=== PATIENT | male | born 1940 | race Caucasian/White ===

== ENCOUNTER → 2019-03-04 | Day surgery (SDC) | payer OTHER ==
--- OUTSIDE RECORDS SUMMARY | 2019-03-04 09:27 | XMS REPORT ---
:1940 [facility] Address [address] [place] [address] Dr. Pat [address] [place] [id number] Care Team Providers Name Role Phone Unavailable Unavailable Unavailable Problems This patient has no known problems. Allergies, Adverse Reactions, Alerts This patient has no known allergies or adverse reactions. Medications This patient has no known medications.
--- OUTSIDE RECORDS SUMMARY | 2019-03-04 09:27 | XMS REPORT | Continuity of Care Document ---
:1940 Author Organization Interface Problems Problem Status Onset Classification Date Comments Source Date Reported 442.[address] LOWER Active [facility] ANEURYSM Medications Medication Details Route Status Patient Ordering Order Source Instructions Provider Date pneumococcal 0.5 ml, IM No Longer SYSTEM 23-valent Route: IM, Active [address] [place] [address] vaccine Drug Form: City INJ, Start date: 11/01/09 9:00:00 Allergies, Adverse Reactions, Alerts Substance Category Reaction Severity Reaction Status Date Comments Source type Reported traMADOL drug Allergy Active allergy [facility] Immunizations Immunization Date Given Site Status Last Updated Comments Source pneumococcal 11/01/2009 completed Zora [facility] [place] 23-valent [facility] Results Order Results Value Reference Date Interpretation Comments Source Name Range Vital Signs Vital Sign Value Date Comments Source Weight 81.818 09/21/2012 [facility] Height 182.88 cm 09/21/2012 [facility] Encounters Location Location Encounter Encounter Reason Attending ADM DC Status Source Details Type Number For Provider Date Date Visit Outpatient [id number] 442.3 CATRACHITA 09/21 Active [facility] Procedures Procedure Code Date Perfomer Comments Source
--- OUTSIDE RECORDS SUMMARY | 2019-03-04 09:27 | XMS REPORT | Clinical Summary ---
:1940 Author Organization [facility] Address [address] [place] [address] Care Team Providers Name Role Phone Asked, No Pcp Primary Care Provider Unavailable Allergies Active Allergy Reactions Severity Noted Date Comments Tramadol Other (See Comments) 02/25/2017 nausea Medications Medication Sig Dispensed Refills Start Date End Date Status warfarin (COUMADIN) 2 MG Take 2 mg by 0 Active tablet mouth daily. methocarbamol (ROBAXIN) 500 Take 500 mg 0 Active MG tablet by mouth 4 (four) times a day. luyvfpcx-ivu-QZ-lycopen-lut Take by 0 Active ein (CENTRUM SILVER) mouth. 0.4-300-250 mg-mcg-mcg tablet traZODone (DESYREL) 100 MG Take 100 mg 0 Active tablet by mouth nightly. simvastatin (ZOCOR) 40 MG Take 40 mg by 0 Active tablet mouth nightly. lisinopril Take 20 mg by 0 Active (PRINIVIL,ZESTRIL) 20 mg mouth daily. tablet hydroCHLOROthiazide Take 25 mg by 0 Active (HYDRODIURIL) 25 MG tablet mouth daily. levothyroxine (SYNTHROID, Take 112 mcg 0 Active LEVOXYL) 112 mcg tablet by mouth every morning. aspirin (ECOTRIN) 81 MG Take 81 mg by 0 Active enteric coated tablet mouth daily. atenolol (TENORMIN) 50 MG Take 50 mg by 0 Active tablet mouth daily. Active Problems Not on file Social History Tobacco Use Types Packs/Day Years Used Date Never Smoker Sex Assigned at Date Recorded Not on file Job Start Date Occupation Industry Not on file Not on file Not on file Travel History Travel Start Travel End No recent travel history available. Last Filed Vital Signs Not on file Plan of Treatment Health Maintenance Due Date Last Done Comments SHINGLES VACCINES (#1) 1988 65+ PNEUMOCOCCAL VACCINE (1 of 2 - PCV13) 2003 PNEUMOCOCCAL POLYSACCHARIDE VACCINE AGE 65 AND OVER 2003 INFLUENZA VACCINE 06/02/2019 Results Not on fileafter 03/03/2018 Insurance Payer Benefit Plan / Group Subscriber ID Type Phone Address AETNA A[facility] xxxxxxxxx Indemnity MEDICARE MEDICARE PART A AND B xxxxxxxxxx Medicare [place], [place] FOR LIFE xxxxxxxxxxx Advance Directives Patient has advance care planning documents on file. For more information, please contact:Harris Esteban[address] [place] [address]
--- OUTSIDE RECORDS SUMMARY | 2019-03-04 09:27 | XMS REPORT | CCD ---
:[address] [facility] Care Team Providers Name Role Phone Antonino Ngo III Referring Provider Allergies, Adverse Reactions, Alerts Substance Reaction Status traMADOL Active Medications Medication Instructions Start Date End Date Status pneumococcal 23-valent 0.5 ml, Route: IM, Drug 11/01/2009 11/01/2009 Completed vaccine Form: INJ, Start date: 11/01/09 9:00:00 Immunizations Vaccine Date Status pneumococcal 23-valent vaccine 11/01/2009 Auth (Verified) Vital Signs Most recent to oldest [Reference Range]: 1 Height 182.88 cm (09/21/2012 10:11:00) Weight 81.818 kg (09/21/2012 10:11:00)
--- NOTE | 2019-03-04 11:41 | RAD REPORT ---
EXAM DESCRIPTION: US - Guided FNA Non Breast - 03/04/2019 10:25 am CLINICAL HISTORY: D37.030 right parotid mass COMPARISON: January 2019 cat scan TECHNIQUE: Risks, benefits and alternatives of procedure explained to the patient and informed conse nt obtained. Skin and subcutaneous tissues anesthetized with lidocaine. Under sonographic guidance, the right parotid mass was localized. 18 gauge needle was placed into the fluid within the mass and several cc of reddish brown fluid removed and given to pathology. A 17 gauge needle was then placed into the solid component of the mass. Through this an 18 gauge need le was placed and 3 core specimens obtained varying in size from 1-1.5 centimeters. Specimens given to pathology. Patient experienced no immediate complication IMPRESSION: Core biopsies of the solid component of a right parotid mass.
== END ==
LOC: FNA 09:25
PROVIDERS: ATTEND Otolaryngology
DX: D37.030 Neoplasm of uncertain behavior of the parotid salivary glands (principal)
CPT/HCPCS: 88108; 88305

== ENCOUNTER 2019-04-01 09:45 | Day surgery (SDC) | payer OTHER ==
--- NOTE | 2019-03-31 11:30 | EKG ---
Test Date: 2019-03-30 Test Time: 14:34:17 Topographical Field Assistant: MONSERRAT MEASUREMENT RESULTS: Intervals: Rate: 67 NE: QRSD: 108 QT: 414 QTc: 437 Magna: P: NE: QRS: 61 T: 82 INTERPRETIVE STATEMENTS: Atrial fibrillation with ventricular paced complexes Septal infarct, age undetermined Abnormal ECG Compared to ECG 05/29/2017 07:30:38 no significant change from previous ECG Electronically Signed On 03-31-19 07:36:49 CDT by Mendel Connelly
[2019-04-01] MEDS ORDERED: Ringers Lactate 1,000 ML IV ONE (10:32)
--- OUTSIDE RECORDS SUMMARY | 2019-04-01 11:40 | XMS REPORT | Continuity of Care Document ---
:1940 Author Organization Interface Problems Problem Status Onset Classification Date Comments Source Date Reported 442.[address] LOWER Active [facility] ANEURYSM Medications Medication Details Route Status Patient Ordering Order Source Instructions Provider Date pneumococcal 0.5 ml, IM No Longer SYSTEM 23-valent Route: IM, Active [address] [place] [address] vaccine Drug Form: City INJ, Start date: 11/01/09 9:00:00 Allergies, Adverse Reactions, Alerts Substance Category Reaction Severity Reaction Status Date Comments Source type Reported traMADOL drug Allergy Active allergy [facility] Immunizations Immunization Date Given Site Status Last Updated Comments Source pneumococcal 11/01/[address] [facility] 23-valent [facility] Results Order Results Value Reference Date Interpretation Comments Source Name Range Vital Signs Vital Sign Value Date Comments Source Weight 81.818 09/21/2012 [facility] Height 182.88 cm 09/21/2012 [facility] Encounters Location Location Encounter Encounter Reason Attending ADM DC Status Source Details Type Number For Provider Date Date Visit Outpatient [id number] 442.3 CATRACHITA 09/21 Active [facility] Procedures Procedure Code Date Perfomer Comments Source
--- OUTSIDE RECORDS SUMMARY | 2019-04-01 11:40 | XMS REPORT | CCD ---
:1940 Author Organization [facility] Care Team Providers Name Role Phone Antonino [...]
--- OUTSIDE RECORDS SUMMARY | 2019-04-01 11:40 | XMS REPORT | Clinical Summary ---
:1940 Author Organization [facility] Address [address] [place] [address] Care Team Providers Name Role Phone Asked, [...] by mouth 4 (four) times a day. uzgtdzft-hzu-JH-lycopen-lut Take by 0 Active ein (CENTRUM SILVER) [...] INFLUENZA VACCINE 06/02/2019 Results Not on fileafter 03/31/2018 Insurance Payer Benefit Plan / Subscriber ID Effective Dates Phone Address Type Group AETNA AETNA [facility] xxxxxxxxx 2000-[facility] Indemnity INDEMNITY t MEDICARE MEDICARE PART A AND xxxxxxxxxx 2003-[place], [place] Medicare B t FOR LIFE xxxxxxxxxxx 2016-Prese nt Advance Directives Patient has advance care planning documents on file. For more information, please contact:Harris Esteban[address] [place] [address]
--- OUTSIDE RECORDS SUMMARY | 2019-04-01 11:41 | XMS REPORT ---
:1940 [facility] Address [address] [place] [address] Dr. Mario. [address] [place] [address] Care Team Providers Name Role Phone Unavailable Unavailable Unavailable Problems This patient has no known problems. Allergies, Adverse Reactions, Alerts This patient has no known allergies or adverse reactions. Medications This patient has no known medications.
[2019-04-01] MEDS ORDERED: PROPOFOL 200 MG/20 ML VIAL IV ONE (12:17)
[2019-04-01] MEDS ORDERED: FENTANYL CITR 100 MCG/2 ML ONE ×2 (12:17→14:41)
[2019-04-01] MEDS ORDERED: MIDAZOLAM HCL 2 MG/2 ML INJ ONE (12:17)
[2019-04-01] MEDS ORDERED: ROCURONIUM 50 MG/5 ML VIAL IV ONE (12:17)
[2019-04-01] MEDS ORDERED: LIDOCAINE 1% MPF 5 ML VIAL ONE (12:17)
[2019-04-01] MEDS ORDERED: SUCCINYLCHOLINE 20 MG/ML (10 ML) IV ONE (12:28)
[2019-04-01] MEDS ORDERED: LIDOCAINE 1% W/EPI 1:100,000 MDV 50 ML VIAL ONE (12:40)
[2019-04-01] MEDS ORDERED: Phenylephrine HCl 10 MG/ML 1 ML VIAL ONE (13:10)
[2019-04-01] MEDS ORDERED: NS 0.9% VIAL 10 ML ONE ×2 (13:10→13:31)
[2019-04-01] MEDS ORDERED: NA CHLORIDE 0.9% 100 ML IV ONE (13:29)
[2019-04-01] MEDS ORDERED: EPHEDRINE SULF 50 MG/ML VIAL ONE (13:31)
[2019-04-01] MEDS ORDERED: ETOMIDATE 20 MG/10 ML VIAL IV ONE (13:41)
--- NOTE | 2019-04-01 15:12 | P.BOP ---
Preoperative diagnosis: Right parotid mass Postoperative diagnosis: same Primary procedure: R superficial parotidectomy with Fn dissection Division Roadmaster: SANDY PERALTA Estimated blood loss: 30ml Specimen: R parotid with cyst aspirate Findings: cystic mass with dark brown cyst contents Anesthesia: General Complications: None Drain(s): GAMA drain Fluids & blood products: crystalloid 1L Transferred to: Recovery Room Condition: Good
[2019-04-01] MEDS: MORPHINE 4 MG/ML SYR ONE ×2 (15:36→15:41)
[2019-04-01] MEDS ORDERED: CODEINE 30MG/APAP 300MG TAB ONE (16:56)
--- NOTE | 2019-04-02 08:35 | EKG ---
Test Date: 2019-04-01 Test Time: 15:20:32 Metal Control Coordinator: BRITTON MEASUREMENT RESULTS: Intervals: Rate: 101 [place]: QRSD: 102 QT: 382 QTc: 495 [place]: P: [place]: QRS: 45 T: 121 INTERPRETIVE STATEMENTS: Atrial fibrillation with rapid ventricular response Low voltage QRS Cannot rule out Anterior infarct, age undetermined Abnormal ECG Compared to ECG 03/30/2019 14:34:17 Low QRS voltage now present Ventricular-paced complex(es) or rhythm no longer present Myocardial infarct finding still present Electronically Signed On 04-02-19 08:35:15 CDT by Mendel Connelly
--- NOTE | 2019-04-03 04:22 | OP ---
Date of Procedure: 04/01/2019 Surgeon: Leah Rachel MD Wing Coverer: Nimisha Bashir Preoperative Diagnoses: Right superficial parotid mass. Postoperative Diagnosis: Right superficial parotid mass. Procedure: Right superficial parotidectomy with facial nerve dissection. Surgical Findings: The mass was very superficial and seem to displace the facial nerve deeply and anteriorly compared to its normal position. The mass was predominantly cystic and contained a dark cola colored fluid. Indication For Procedure: Mr. Beckman is an 78-year-old who presented with a new onset of a right parotid mass for approximately 2 months. He underwent evaluation including a CT scan of the neck, which showed an irregular mass of approximately 3 cm on the superficial lobe of the right parotid, which had hypodense and hyperdense components with no evidence of lymphadenopathy and a neoplastic process was suspected. A fine-needle aspiration was performed in the clinic and results show macrophages and amorphous debris suggestive of cyst contents and some small fragments of benign salivary tissue. Formal diagnosis was not feasible. 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 Differential diagnosis including oncocytic tumors, oncocytic hyperplasia, oncocytoma, oncocytic carcinoma, Warthin's tumors, oncocytic mucoepidermoid carcinoma, and acinic cell carcinoma. Due to the inability to obtain a definitive diagnosis, recommendation was made for excision. The risks , benefits, and alternatives were discussed with the patient who agreed to proceed. Description Of Procedure: The patient was brought to the operating room. He was placed under general anesthesia via oral endotracheal tube. The right face , ear, and neck were prepped in a sterile fashion. The planned incision site was injected with 1% lidocaine with epinephrine. After draping, a standard parotidectomy incision was designed through the pretragal area around the earlobe and onto the neck with the inferior most aspect extending along the pre- auricular crease. The skin was divided with Bovie electrocautery and a SMAS flap was elevated anteriorly and posteriorly. The anterior border of the sternocleidomastoid muscle was isolated and the mass was noted to be located at the inferior posterior aspect of the parotid gland. The mass was fluctuant, consistent with cystic portions. Dissection was carried out along the tragal cartilage and the posterior aspect of the parotid was elevated and retracted anteriorly. Dissection inferiorly revealed the cervical branch of the facial nerve and this was followed from its distal location towards the proximal aspect. Careful dissection was carried out, but the pes of the facial nerve was difficult to locate with the tumor seeming to be all completely superficial to the pes. An attempt was made to aspirate cyst contents in order to decrease pressure and improve retraction of the tumor. The cyst contents were sent as a separate specimen to pathology. After careful consideration, decision was made to divide around the tumor along the superior and anterior aspects to locate further distal branches of the nerve. Careful dissection was carried out, but no nerve branches were identified. The tumor was carefully divided from the surrounding parotid tissue. After removal of the mass, the area was carefully inspected. The pes was again not specifically identified, although the cervical branch could be followed in a distal to proximal aspect and appeared to be persistently connected. There was good reactivity with mechanical stimulation of the cervical branch. The surgical bed was thoroughly irrigated with copious amounts of sterile saline. A small area of bleeding was cauterized along the surface of the parotid tissue resulting in stimulation of the distal buccal branches of the facial nerve suggesting and confirming intact function. No further cauterization was performed in this area to avoid overstimulation or damage to these nerve branches. A 10-Bulgarian round drain was then placed within the wound bed and withdrawn through the inferior posterior portion of the skin flap. The wound was then closed in layered fashion using 4- 0 Vicryl deep sutures and Monocryl subcuticular sutures. The drain was then placed on suction and the patient was returned to care of anesthesia for awakening and extubation in the operating room. During the closure, the patient was noted by Anesthesia to have some unusual EKG signals. A magnet was placed over the patient's existing pacemaker to reset the pacemaker function and the EKG appeared to have returned to normal. The patient's oxygenation and blood pressure remained stable throughout this and no further complication was noted. The patient will be discharged home later today in the care of his family and follow up with Dr. Rachel for removal of the drain. REBECCA/ABHINAV Voice ID: [id number] Report ID: [id number] CLIF
== END 2019-04-01 17:35 | disposition home or self-care (01) ==
LOC: OR 09:45
PROVIDERS: ATTEND Otolaryngology
PROC: 0CB80ZZ Excision of Right Parotid Gland, Open Approach (ICD-10-PCS; principal; 2019-04-01 12:15)
DX: C07 Malignant neoplasm of parotid gland (principal); K11.6 Mucocele of salivary gland; I48.91 Unspecified atrial fibrillation; Z79.01 Long term (current) use of anticoagulants; Z79.899 Other long term (current) drug therapy; Z87.891 Personal history of nicotine dependence
CPT/HCPCS: 42410; 93005 ×2; 88161; 88307; J2704; J0330; J2370; J2250; J3010 ×2; 88108; 88305